=== PATIENT | male | born 1970 | race Caucasian/White ===

== ENCOUNTER 2023-06-19 12:26 | Day surgery (SDC) | payer BC ==
[~2023-06-19] VITALS: Ht 180.3 cm; Wt 89.0 kg
[2023-06-19] MEDS ORDERED: AMLODIPINE-OLM1 EAC5 (12:53)
[2023-06-19] MEDS ORDERED: LOSA25 (12:53)
[2023-06-19 13:45] VITALS: BP 97/66
== END 2023-06-19 13:46 | disposition home or self-care (01) ==
LOC: ORSCSDS 12:26
PROVIDERS: Internal Medicine Gastroenterology
PROC: 0DB98ZX Excision of Duodenum, Via Natural or Artificial Opening Endoscopic, Diagnostic (ICD-10-PCS; principal; 2023-06-19 13:45)
PROC: 0DBL8ZX Excision of Transverse Colon, Via Natural or Artificial Opening Endoscopic, Diagnostic (ICD-10-PCS; principal; 2023-06-19 13:45)
PROC: 0DBE8ZX Excision of Large Intestine, Via Natural or Artificial Opening Endoscopic, Diagnostic (ICD-10-PCS; principal; 2023-06-19 13:45)
PROC: 0DB78ZX Excision of Stomach, Pylorus, Via Natural or Artificial Opening Endoscopic, Diagnostic (ICD-10-PCS; principal; 2023-06-19 13:45)
DX: R19.5 Other fecal abnormalities (principal); K21.9 Gastro-esophageal reflux disease without esophagitis; R10.10 Upper abdominal pain, unspecified; R14.0 Abdominal distension (gaseous); K29.70 Gastritis, unspecified, without bleeding; D12.3 Benign neoplasm of transverse colon; K57.30 Diverticulosis of large intestine without perforation or abscess without bleeding; I10 Essential (primary) hypertension; Z79.899 Other long term (current) drug therapy; F17.220 Nicotine dependence, chewing tobacco, uncomplicated
CPT/HCPCS: 88305; 88342; C1889; J2704; J7120

== ENCOUNTER → 2023-08-23 | Outpatient (CLI) | payer BC ==
[~2023-08-23] MED LIST: AMLODIPINE-OLM1 EAC5; LOSA25
== END | disposition home or self-care (01) ==
LOC: LAB 07:59 → LAB SHORT 07:59
DX: D48.5 Neoplasm of uncertain behavior of skin (principal)
CPT/HCPCS: 88305